=== PATIENT | female | born 2000 | race Caucasian/White ===

== ENCOUNTER 2019-01-03 05:04 | Outpatient (CLI) | payer MEDICAID ==
[2019-01-03] MEDS ORDERED: LACTATED RINGERS 1,000 ML IV ONE (05:49)
[2019-01-03 06:17] LABS: Amorphous Crystals,Urine Few; Bilirubin,Urine NEG (Negative); Blood,Urine NEG (Negative); Color,Urine Yellow (Yellow); Protein,Urine <15 mg/dL mg/dL (Negative); Urobilinogen,Urine < 2.0 mg/dL (<2.0)
[2019-01-03 06:22] LABS: Amphetamine Screen,Urine PRESUMPTIVE NEGATIVE; Benzodiazepines Screen,Urine PRESUMPTIVE NEGATIVE; Cannabinoid Screen,Urine PRESUMPTIVE NEGATIVE; Cocaine Screen,Urine PRESUMPTIVE NEGATIVE; Methadone Screen,Urine PRESUMPTIVE NEGATIVE; Opiate Screen,Urine PRESUMPTIVE NEGATIVE
[2019-01-04 18:21] VITALS: BP 108/64
== END 2019-01-03 06:22 | disposition home or self-care (01) ==
LOC: TRG 05:04
PROVIDERS: ATTEND Obstetrics & Gynecology
DX: O47.03 False labor before 37 completed weeks of gestation, third trimester (principal); Z3A.35 35 weeks gestation of pregnancy
CPT/HCPCS: 59025; 80307; 81001